=== PATIENT | male | born 1985 | race Two or more races ===

== ENCOUNTER 2018-05-20 16:20 | Emergency (ER) | payer OTHER ==
[~2018-05-20] VITALS: Ht 157.5 cm; Wt 83.9 kg
--- NOTE | 2018-05-20 17:27 | NUR ---
ED Nurse Note: Patient coming in from work, per patient patient felll in split position and since then has pain on the right groin area when walking, 12/05. patient reports bruises around that area.
[2018-05-20 17:45] VITALS: BP 146/97
[2018-05-20] MEDS ORDERED: Tylenol #3 tab (300mg/30mg) ORAL ONE (18:00)
--- NOTE | 2018-05-20 18:50 | Emergency Room Report ---
History of Present Illness General Chief Complaint: Pain Source: Patient Present Illness HPI 32-year-old male presents to the emergency department complaining of localized 8 out of 10 in severity pain, bruising, swelling and tenderness to palpation to the right groin since last week. Patient reports that he was at work and he slipped and landed in the splits position. Agency of acute onset of pain which has not been relieved with rest and ibuprofen. Patient rates pain is exacerbated upon walking or going from sitting to standing or standing to sitting. Patient denies clicking of the joint he denies inability to bear weight. And states he has some relief during rest however soon as he gets up pain returns. Denies hitting his head or having loss of consciousness he also denies midline neck or back pain. Denies open wounds or bleeding. Patient also reports burn to the left forearm sustained yesterday while cooking. Reports 6 out of 10 in severity tenderness mild erythema. Patient is not sure when his last tetanus vaccination was. He denies significant past medical history Allergies: Coded Allergies: No Known Allergies (Unverified , 05/20/18) Patient History Past Medical History: see triage record Past Surgical History: none Pertinent Family History: none Reviewed Nursing Documentation: PMH: Agreed; PSxH: Agreed Nursing Documentation-PMH Past Medical History: No Stated History Review of Systems All Other Systems: negative except mentioned in HPI Physical Exam Vital Signs Date Time Temp Pulse Resp B/P (MAP) Pulse Ox O2 Delivery O2 Flow Rate FiO2 05/20/18 16:27 98.4 79 15 146/97 95 Room Air Sp02 EP Interpretation: reviewed, normal General Appearance: no apparent distress, alert, GCS 15, non-toxic, mild distress Head: normocephalic, atraumatic Eyes: bilateral eye normal inspection, bilateral eye PERRL ENT: hearing grossly normal, normal voice Neck: full range of motion Respiratory: lungs clear, normal breath sounds, speaking full sentences Cardiovascular #1: regular rate, rhythm Musculoskeletal: back normal, gait/station normal, normal range of motion, tender - Right Groin, bruising, swelling, tenderness Neurologic: alert, oriented x3, responsive, motor strength/tone normal, sensory intact, speech normal, grossly normal Psychiatric: judgement/insight normal Skin: normal color, no rash, warm/dry, well hydrated, other - bruising right inguinal/groing. , hitchcock - likely diagnosed second-degree burn to the left forearm which is non-circumferential and covering less than 1% BSA. Medical Decision Making PA Attestation Dr. Pulliam is my supervising Physician whom patient management has been discussed with. Diagnostic Impression: Primary Impression: Muscle tear Additional Impressions: Strain of muscle of right groin region Inguinal muscle strain Qualified Codes: S39.013A - Strain of muscle, fascia and tendon of pelvis, initial encounter Burn of forearm, left, second degree Qualified Codes: T22.212A - Burn of second degree of left forearm, initial encounter ER Course 32-year-old male presents to the emergency department complaining of localized 8 out of 10 in severity pain, bruising, swelling and tenderness to palpation to the right groin since last week. Patient reports that he was at work and he slipped and landed in the splits position. Agency of acute onset of pain which has not been relieved with rest and ibuprofen. Patient rates pain is exacerbated upon walking or going from sitting to standing or standing to sitting. Patient denies clicking of the joint he denies inability to bear weight. And states he has some relief during rest however soon as he gets up pain returns. Denies hitting his head or having loss of consciousness he also denies midline neck or back pain. Denies open wounds or bleeding. Patient also reports burn to the left forearm sustained yesterday while cooking. Reports 6 out of 10 in severity tenderness mild erythema. Patient is not sure when his last tetanus vaccination was. He denies significant past medical history Ddx considered but are not limited to Fracture, dislocation, contusion, Sprain/ Strain/Spasm, Ligamental injury, hernia, laceration, burn, cellulitis just to name a few. Vital signs: are WNL, pt. is afebrile H&PE are most consistent with musculoskeletal injury will perform imaging to r/ o fractures/dislocations. likely diagnosed second-degree burn to the left forearm which is non-circumferential and covering less than 1% BSA. ORDERS: - X-ray Right Hip 2 views - negative for fx, Dislocation, or significant soft tissue injury, per preliminary read in ED, and signed by MASON Jiménez, my supervising physician has reviewed, and agrees with my interpretation. ED INTERVENTIONS: - Garrett PO -Silvadene TP Tdap DISCHARGE: At this time pt. is stable for d/c to home. Will provide printed patient care instructions, and any necessary prescriptions. Care plan and follow up instructions have been discussed with the patient prior to discharge. Other X-Ray Diagnostic Results Other X-Ray Diagnostic Results : X-Ray ordered: Right Hip # of Views/Limited Vs Complete: 2 View Indication: Pain EP Interpretation: Yes PA Xray: Interpretation reviewed, by supervising MD, and agrees with findings. Interpretation: no dislocation, no soft tissue swelling, no fractures Impression: No acute disease Electronically Signed by: Susan Jiménez PA-C Last Vital Signs Date Time Temp Pulse Resp B/P (MAP) Pulse Ox O2 Delivery O2 Flow Rate FiO2 05/20/18 17:45 98.4 79 15 146/97 95 Room Air Disposition: HOME, SELF-CARE Condition: Stable Scripts Silver Sulfadiazine (SILVADENE) 20 Gm Cream..g. 20 GM TP BID, #20 GM Prov: Susan Jiménez 05/20/18 Ibuprofen* (MOTRIN*) 600 Mg Tablet 600 MG ORAL THREE TIMES A DAY, #30 TAB 0 Refills Prov: Susan Jiménez 05/20/18 Acetaminophen With Codeine (T#3) (TYLENOL #3 TAB*) Y Tab 1 TAB ORAL Q6HR PRN for For Pain, #15 TAB Prov: Susan Jiménez 05/20/18 Referrals: NOT CHOSEN IPA/,REFERRING (PCP) Departure Forms: Return to Work Return to Work Date: May 26, 2018 Work Restrictions: None Other Restrictions: Follow up w/ Orthopedic if symptoms persist. May return Sooner if resolved. Return to Full Activity: May 26, 2018 Patient Instructions: Groin Strain, Muscle Tear Additional Instructions: Take medications as directed. Follow up with an [facility] in 3-5 days, even if your symptoms have resolved. If symptoms persist MRI may be required at the discretion of your PCP or Ortho Specialist. --Please review list of primary care clinics, if you do not already have a primary care provider who can give you an Orthopedic Referral. Return sooner to ED if new symptoms occur, or current symptoms become worse. Do not drink alcohol, drive, or operate heavy machinery while taking Tylenol # 3 as this may cause drowsiness. - Please note that this Emergency Department Report was dictated using [employer] supervisor technology software, occasionally this can lead to erroneous entry secondary to interpretation by the dictation equipment. Susan Jiménez May 20, 2018 18:50
[2018-05-20] MEDS ORDERED: ACETAMINOPHEN-1 EAC1 ORAL (18:53)
[2018-05-20] MEDS ORDERED: IBUPROFEN600 MG ORAL (18:53)
[2018-05-20] MEDS ORDERED: SILVADENE20 GM TP (18:59)
[2018-05-20] MEDS ORDERED: Tetanus/Diptheria/Pertussis Vaccine 0.5ml Syr IM ONE (19:00)
--- NOTE | 2018-05-20 19:15 | NUR ---
ED Nurse Note: Scanner not working. manual bar code used.
[2018-05-20 19:30] VITALS: BP 146/97
--- NOTE | 2018-05-20 19:30 | NUR ---
HAND-OFF: Report given to Sidney ZIEGLER.
--- NOTE | 2018-05-20 19:31 | NUR ---
ED Nurse Note: endorsed to Sidney ZIEGLER regarding workers comp.
--- NOTE | 2018-05-21 10:39 | Diagnostic Imaging Report ---
Indication: Hip pain, status post fall Technique: 2 views of the right hip Comparison: none Findings: No acute fractures. No dislocations. The joint spaces are preserved Impression: Negative
== END 2018-05-20 19:31 | disposition home or self-care (01) ==
LOC: EMR 18:42
DX: S39.013A Strain of muscle, fascia and tendon of pelvis, initial encounter (principal); T22.212A Burn of second degree of left forearm, initial encounter; W10.8XXA Fall (on) (from) other stairs and steps, initial encounter; Y92.69 Other specified industrial and construction area as the place of occurrence of the external cause; Z23 Encounter for immunization
CPT/HCPCS: 90471; 90715; 99283